=== PATIENT | male | born 1965 | race Caucasian/White ===

== ENCOUNTER 2016-07-23 08:47 | Outpatient (CLI) | payer OTHER ==
[2016-07-23 09:41] LABS: ALT (SGPT) 15 U/L (0-55); AST (SGOT) 19 U/L (5-34); Albumin 3.9 g/dL (3.5-5.0); Alkaline Phosphatase 54 U/L (40-150); Anion Gap 12 mmol/L (10-20); BUN (Urea Nitrogen) 14 mg/dL (8.4-25.7); Bilirubin, Total 0.5 mg/dL (0.2-1.2); Calc. Creatinine Clearance 0 mL/min (70-130); Calcium 8.9 mg/dL (7.8-10.44); Carbon Dioxide 29 mmol/L (22-29); Cardiac Risk 3.1 (Less than 4.5); Chloride 108 mmol/L (98-107); Cholesterol 131 mg/dL (< 200 Desired); Estimated GFR-MDRD 73; Globulin 2.6 g/dL (2.4-3.5); Glucose 95 mg/dL (70-105); HDL Cholesterol 42 mg/dL (>60 Neg Risk); LDL Cholesterol, Calculated 72 mg/dL; Potassium 4.1 mmol/L (3.5-5.1); Protein, Total 6.5 g/dL (6.0-8.3); Sodium 145 mmol/L (136-145); Triglycerides 87 mg/dL (Less than 150)
[2016-07-23 09:46] LABS: #Basophils 0.1 thou/uL (0.0-0.2); #Eosinphils 0.2 thou/uL (0.0-0.7); #Lymphocytes 1.6 thou/uL (1.20-3.40); #Monocytes 0.6 thou/uL (0.11-0.59); #Neutrophils 3.4 thou/uL (1.40-6.50); %Basophils 1.7 % (0.0-1.0); %Eosinophils 3.3 % (0.0-10.0); %Lymphocytes 26.8 % (21.0-51.0); %Monocytes 9.4 % (0.0-10.0); %Neutrophils 58.8 % (42.0-75.0); Hemoglobin 13.5 g/dL (14.0-18.0); Mean Corpuscular HGB CONC 34.2 g/dL (32.0-36.0); Mean Corpuscular Volume 93.5 fl (80.0-94.0); Mean Platelet Volume 8.1 fL (7.4-10.4); Platelet Count 135 thou/uL (130-400); RBC Distribution Width 12.1 % (11.5-14.5); Red Blood Cell (RBC) Count 4.23 mill/uL (4.70-6.10); White Blood Cell (WBC) Count 5.8 thou/uL (4.8-10.8)
[2016-07-23 09:59] LABS: Free T4 (Free Thyroxine) 1.08 ng/dL (0.70-1.48); Thyroid Stimulating Hormone 2.6721 uIU/mL (0.35-4.94)
== END 2016-07-23 08:48 | disposition home or self-care (01) ==
LOC: MADLAB 08:47
PROVIDERS: ATTEND Internal Medicine Endocrinology, Diabetes & Metabolism
DX: Z13.220 Encounter for screening for lipoid disorders (principal); E29.1 Testicular hypofunction; E03.9 Hypothyroidism, unspecified; D64.9 Anemia, unspecified
CPT/HCPCS: 36415; 80053; 80061; 84439; 84443; 85025

== ENCOUNTER 2016-12-07 16:17 | Outpatient (CLI) | payer OTHER ==
[2016-12-07 17:25] LABS: #Basophils 0.1 thou/uL (0.0-0.2); #Eosinphils 0.1 thou/uL (0.0-0.7); #Lymphocytes 1.5 thou/uL (1.20-3.40); #Monocytes 0.7 thou/uL (0.11-0.59); #Neutrophils 5.5 thou/uL (1.40-6.50); %Basophils 1.4 % (0.0-1.0); %Eosinophils 1.7 % (0.0-10.0); %Lymphocytes 18.9 % (21.0-51.0); %Monocytes 8.8 % (0.0-10.0); %Neutrophils 69.1 % (42.0-75.0); Hemoglobin 14.8 g/dL (14.0-18.0); Mean Corpuscular HGB CONC 34.1 g/dL (32.0-36.0); Mean Corpuscular Hemoglobin 31.2 pg (27.0-31.0); Mean Corpuscular Volume 91.6 fl (80.0-94.0); Mean Platelet Volume 8.1 fL (7.4-10.4); Platelet Count 217 thou/uL (130-400); RBC Distribution Width 11.3 % (11.5-14.5); Red Blood Cell (RBC) Count 4.72 mill/uL (4.70-6.10)
[2016-12-07 18:08] LABS: ALT (SGPT) 15 U/L (8-55); AST (SGOT) 17 U/L (5-34); Albumin 3.8 g/dL (3.5-5.0); Alkaline Phosphatase 60 U/L (40-150); Anion Gap 15 mmol/L (10-20); BUN (Urea Nitrogen) 19 mg/dL (8.4-25.7); Bilirubin, Total 0.4 mg/dL (0.2-1.2); Calc. Creatinine Clearance 0 mL/min (70-130); Calcium 9.1 mg/dL (7.8-10.44); Carbon Dioxide 24 mmol/L (22-29); Chloride 107 mmol/L (98-107); Estimated GFR-MDRD 67; Globulin 3.8 g/dL (2.4-3.5); Glucose 96 mg/dL (70-105); Potassium 4.7 mmol/L (3.5-5.1); Protein, Total 7.6 g/dL (6.0-8.3); Sodium 141 mmol/L (136-145)
[2016-12-08 15:55] LABS: Hep C IgG Ab Non-Reactive (NonReactive); Hep C Index 0.39 S/CO (0-0.79)
== END 2016-12-07 16:18 | disposition home or self-care (01) ==
LOC: MADLAB 16:17
PROVIDERS: ATTEND Internal Medicine Endocrinology, Diabetes & Metabolism
DX: Z13.220 Encounter for screening for lipoid disorders (principal); E29.1 Testicular hypofunction; D61.9 Aplastic anemia, unspecified; E03.9 Hypothyroidism, unspecified
CPT/HCPCS: 80053; 85025; 86803

== ENCOUNTER 2018-04-12 16:05 | Outpatient (CLI) | payer BC ==
[2018-04-12 16:27] LABS: #Basophils 0.1 thou/uL (0.0-0.2); #Eosinphils 0.2 thou/uL (0.0-0.7); #Lymphocytes 1.9 thou/uL (1.20-3.40); #Monocytes 0.6 thou/uL (0.11-0.59); %Basophils 1.9 % (0.0-1.0); %Eosinophils 2.7 % (0.0-10.0); %Lymphocytes 28.4 % (21.0-51.0); %Monocytes 8.7 % (0.0-10.0); %Neutrophils 58.5 % (42.0-75.0); Hemoglobin 14.5 g/dL (14.0-18.0); Mean Corpuscular HGB CONC 34.7 g/dL (32.0-36.0); Mean Corpuscular Hemoglobin 31.8 pg (27.0-31.0); Mean Corpuscular Volume 91.6 fL (78.0-98.0); Mean Platelet Volume 8.4 fL (7.4-10.4); Platelet Count 168 thou/uL (130-400); RBC Distribution Width 11.5 % (11.5-14.5); Red Blood Cell (RBC) Count 4.57 mill/uL (4.70-6.10); White Blood Cell (WBC) Count 6.8 thou/uL (4.8-10.8)
[2018-04-12 16:41] LABS: ALT (SGPT) 13 U/L (8-55); AST (SGOT) 21 U/L (5-34); Albumin 4.1 g/dL (3.5-5.0); Alkaline Phosphatase 57 U/L (40-150); Anion Gap 11 mmol/L (10-20); BUN (Urea Nitrogen) 16 mg/dL (8.4-25.7); Bilirubin, Total 0.5 mg/dL (0.2-1.2); Calc. Creatinine Clearance 0 mL/min (70-130); Calcium 9.1 mg/dL (7.8-10.44); Carbon Dioxide 25 mmol/L (22-29); Chloride 107 mmol/L (98-107); Estimated GFR-MDRD 70; Glucose 96 mg/dL (70-105); Potassium 3.9 mmol/L (3.5-5.1); Protein, Total 7.1 g/dL (6.0-8.3); Sodium 139 mmol/L (136-145)
[2018-04-13 16:13] LABS: Albumin (w/Testosterone Panel) 4.1 g/dL
[2018-04-13 16:38] LABS: Sex Hormone Binding Globulin 32.8 nmol/L (11-78); Testosterone, Free 128.8 pg/mL (47-244); Testosterone, Total 580.9 ng/dL (221-716)
[2018-04-13 17:02] LABS: Follow-up Chemistry Comp? YES; Follow-up Result - Chemistry REPORT FAXED
== END 2018-04-12 16:06 | disposition home or self-care (01) ==
LOC: MADLAB 16:05
PROVIDERS: ATTEND Family Medicine
DX: Z13.220 Encounter for screening for lipoid disorders (principal); E29.1 Testicular hypofunction; E03.9 Hypothyroidism, unspecified
CPT/HCPCS: 36415; 80053; 84270; 84403; 85025

== ENCOUNTER 2019-02-14 09:29 | Outpatient (CLI) | payer BC ==
[2019-02-14 15:04] LABS: Albumin (w/Testosterone Panel) 4.1 g/dL
[2019-02-14 15:05] LABS: ALT (SGPT) 15 U/L (8-55); AST (SGOT) 19 U/L (5-34); Albumin 4.1 g/dL (3.5-5.0); Alkaline Phosphatase 61 U/L (40-150); Anion Gap 11 mmol/L (10-20); BUN (Urea Nitrogen) 13 mg/dL (8.4-25.7); Bilirubin, Total 0.5 mg/dL (0.2-1.2); Calc. Creatinine Clearance 0 mL/min (70-130); Calcium 8.9 mg/dL (7.8-10.44); Carbon Dioxide 26 mmol/L (22-29); Chloride 109 mmol/L (98-107); Estimated GFR-MDRD 83; Globulin 2.9 g/dL (2.4-3.5); Glucose 103 mg/dL (70-105); Potassium 4.2 mmol/L (3.5-5.1); Sodium 142 mmol/L (136-145)
[2019-02-14 15:22] LABS: Free T4 (Free Thyroxine) 0.9 ng/dL (0.70-1.48); Thyroid Stimulating Hormone 1.5325 uIU/mL (0.35-4.94)
[2019-02-14 15:24] LABS: Sex Hormone Binding Globulin 30.1 nmol/L (11-78); Testosterone, Free 134.9 pg/mL (47-244)
== END 2019-02-14 09:30 | disposition home or self-care (01) ==
LOC: MADLAB 09:29
PROVIDERS: ATTEND Family Medicine
DX: E03.9 Hypothyroidism, unspecified (principal); E29.1 Testicular hypofunction
CPT/HCPCS: 36415; 80053; 83036; 84270; 84403; 84439; 84443; 84481

== ENCOUNTER 2020-08-14 08:25 | Outpatient (CLI) | payer BC ==
[2020-08-14 08:44] LABS: #Basophils 0.1 thou/uL (0.0-0.2); #Eosinphils 0.3 thou/uL (0.0-0.7); #Lymphocytes 1.3 thou/uL (1.20-3.40); #Monocytes 0.6 thou/uL (0.11-0.59); #Neutrophils 3.8 thou/uL (1.40-6.50); %Basophils 1.8 % (0.0-1.0); %Eosinophils 5.5 % (0.0-10.0); %Lymphocytes 21.2 % (21.0-51.0); %Neutrophils 61.6 % (42.0-75.0); Hemoglobin 14.3 g/dL (14.0-18.0); Mean Corpuscular HGB CONC 34.6 g/dL (32.0-36.0); Mean Corpuscular Hemoglobin 30.7 pg (27.0-31.0); Mean Corpuscular Volume 88.9 fL (78.0-98.0); Mean Platelet Volume 8.2 fL (7.4-10.4); Platelet Count 157 thou/uL (130-400); RBC Distribution Width 11.8 % (11.5-14.5); Red Blood Cell (RBC) Count 4.65 mill/uL (4.70-6.10); White Blood Cell (WBC) Count 6.1 thou/uL (4.8-10.8)
[2020-08-14 09:20] LABS: ALT (SGPT) 27 U/L (8-55); AST (SGOT) 24 U/L (5-34); Albumin 3.8 g/dL (3.5-5.0); Alkaline Phosphatase 72 U/L (40-110); Anion Gap 11 mmol/L (10-20); BUN (Urea Nitrogen) 15 mg/dL (8.4-25.7); Bilirubin, Total 0.5 mg/dL (0.2-1.2); Calc. Creatinine Clearance 0 mL/min (70-130); Calcium 8.6 mg/dL (7.8-10.44); Carbon Dioxide 26 mmol/L (22-29); Chloride 108 mmol/L (98-107); Globulin 2.8 g/dL (2.4-3.5); Glucose 105 mg/dL (70-105); Potassium 4.1 mmol/L (3.5-5.1); Protein, Total 6.6 g/dL (6.0-8.3); Sodium 141 mmol/L (136-145)
[2020-08-14 09:58] LABS: Thyroid Stimulating Hormone 1.8048 uIU/mL (0.35-4.94)
[2020-08-14 15:31] LABS: Iron 86 ug/dL (65-175)
[2020-08-14 15:49] LABS: Ferritin 20.97 ng/mL (22-322); Free T4 (Free Thyroxine) 0.95 ng/dL (0.70-1.48)
[2020-08-14 15:52] LABS: Vitamin D, 25 Hydroxy 26.4 ng/ml (> 30.0)
== END 2020-08-14 08:26 | disposition home or self-care (01) ==
LOC: MADLAB 08:25
PROVIDERS: ATTEND Internal Medicine Endocrinology, Diabetes & Metabolism
DX: E03.9 Hypothyroidism, unspecified (principal); E55.9 Vitamin D deficiency, unspecified; D50.9 Iron deficiency anemia, unspecified; E29.1 Testicular hypofunction; R73.09 Other abnormal glucose
CPT/HCPCS: 36415; 80053; 82306; 82728; 83540; 84439; 84443; 85025

== ENCOUNTER 2020-12-19 07:03 | Outpatient (CLI) | payer BC ==
[2020-12-19 09:19] LABS: ALT (SGPT) 22 U/L (8-55); AST (SGOT) 19 U/L (5-34); Albumin 3.7 g/dL (3.5-5.0); Alkaline Phosphatase 58 U/L (40-110); Anion Gap 13 mmol/L (10-20); BUN (Urea Nitrogen) 16 mg/dL (8.4-25.7); Bilirubin, Total 0.4 mg/dL (0.2-1.2); Calc. Creatinine Clearance 0 mL/min (70-130); Calcium 8.4 mg/dL (7.8-10.44); Carbon Dioxide 23 mmol/L (22-29); Chloride 111 mmol/L (98-107); Globulin 2.5 g/dL (2.4-3.5); Glucose 106 mg/dL (70-105); Protein, Total 6.2 g/dL (6.0-8.3); Sodium 143 mmol/L (136-145)
[2020-12-19 09:52] LABS: #Basophils 0.1 thou/uL (0.0-0.2); #Eosinphils 0.3 thou/uL (0.0-0.7); #Lymphocytes 1.6 thou/uL (1.20-3.40); #Monocytes 0.6 thou/uL (0.11-0.59); #Neutrophils 4.7 thou/uL (1.40-6.50); %Basophils 1.5 % (0.0-1.0); %Eosinophils 3.6 % (0.0-10.0); %Lymphocytes 21.6 % (21.0-51.0); %Monocytes 7.8 % (0.0-10.0); %Neutrophils 65.5 % (42.0-75.0); Hemoglobin 14.6 g/dL (14.0-18.0); Mean Corpuscular HGB CONC 33.2 g/dL (32.0-36.0); Mean Corpuscular Hemoglobin 30.9 pg (27.0-31.0); Mean Corpuscular Volume 92.9 fL (78.0-98.0); Mean Platelet Volume 8.6 fL (7.4-10.4); Platelet Count 166 thou/uL (130-400); RBC Distribution Width 11.9 % (11.5-14.5); Red Blood Cell (RBC) Count 4.72 mill/uL (4.70-6.10); White Blood Cell (WBC) Count 7.2 thou/uL (4.8-10.8)
[2020-12-19 11:45] LABS: Hemoglobin A1c 5.1 % (4.0-6.0)
[2020-12-19 12:01] LABS: Albumin (w/Testosterone Panel) 3.6 g/dL
[2020-12-19 12:21] LABS: Sex Hormone Binding Globulin 21.6 nmol/L (11-78); Testosterone, Free 78.7 pg/mL (47-244); Testosterone, Total 289.4 ng/dL (221-716); Vitamin D, 25 Hydroxy 68.4 ng/ml (> 30.0)
[2020-12-19 12:26] LABS: Ferritin 23.88 ng/mL (22-322)
== END 2020-12-19 07:04 | disposition home or self-care (01) ==
LOC: MADLAB 07:03
PROVIDERS: ATTEND Internal Medicine Endocrinology, Diabetes & Metabolism
DX: E03.9 Hypothyroidism, unspecified (principal); D50.9 Iron deficiency anemia, unspecified; E55.9 Vitamin D deficiency, unspecified; E29.1 Testicular hypofunction; Z98.84 Bariatric surgery status
CPT/HCPCS: 36415; 80053; 82306; 82607; 82728; 82746; 83036; 84270; 84403; 85025